=== PATIENT | female | born 1935 | race Caucasian/White ===

== ENCOUNTER 2017-06-29 09:40 | Observation (INO) | payer MEDICARE ==
[~2017-06-29] VITALS: Ht 152.4 cm; Wt 34.5 kg
[2017-06-29 12:59] LABS: BASOPHILS # (AUTO) 0.09 x10^3/uL (0-0.1); BASOPHILS % (AUTO) 1 % (0-1); EOSINOPHILS # (AUTO) 0.01 x10^3/uL (0-0.4); EOSINOPHILS % (AUTO) 0 % (1-7); LYMPHOCYTES # (AUTO) 0.97 x10^3/uL (1-3.4); LYMPHOCYTES % (AUTO) 10 % (22-44); MD NO; MEAN CORPUSCULAR HEMOGLOBIN 30.3 pg (27.0-34.8); MEAN CORPUSCULAR HGB CONC 32.9 g/dL (32.4-35.8); MEAN CORPUSCULAR VOLUME 92.2 fL (80-100); MEAN PLATELET VOLUME 7.3 fL (7.4-10.4); MONOCYTES % (AUTO) 4 % (2-9); NEUTROPHILS # (AUTO) 8.19 x10^3/uL (1.8-6.8); NEUTROPHILS % (AUTO) 85 % (42-75); PLATELET COUNT 205 x10^3/uL (130-400); RED BLOOD COUNT 4.25 x10^6/uL (3.82-5.3); RED CELL DISTRIBUTION WIDTH 14.6 % (9.6-15.2)
[2017-06-29 13:03] LABS: ALBUMIN 2.9 g/dL (3.4-5.0); ANION GAP 6 mmol/L (5-15); CALCIUM 8.4 mg/dL (8.5-10.1); CHLORIDE 100 mmol/L (98-107); CREATININE 0.48 mg/dL (0.55-1.02)
[2017-06-29] MEDS ORDERED: NS + 20MEQ KCL 1,000 ML IV SCH (14:20)
[2017-06-29] MEDS ORDERED: HYDROcodone/APAP 5/325 TABLET PO PRN (14:30)
[2017-06-29] MEDS ORDERED: morphine SULFATE 10 MG/ML, 1ML IVPush PRN (14:30)
[2017-06-29] MEDS ORDERED: POLYETHYLENE GLYCOL 17 GM PACKET PO PRN (14:30)
[2017-06-29] MEDS ORDERED: ACETAMINOPHEN 325 MG TABLET PO PRN (14:30)
[2017-06-29] MEDS ORDERED: ONDANSETRON 2MG/ML, 2ML IVPush PRN (14:30)
[2017-06-29] MEDS ORDERED: DOCUSATE 100 MG CAPSULE PO PRN (14:30)
[2017-06-29] MEDS ORDERED: METHOCARBAMOL 500 MG TABLET PO PRN (15:00)
[2017-06-29 15:24] VITALS: BP 100/69
[2017-06-29] MEDS: ENOXAPARIN 40 MG/0.4 ML SQ SCH ×2 (17:56→18:01)
[2017-06-29] MEDS: NICOTINE 7 MG/24 HR PATCH.TD24 TD SCH (17:56)
[2017-06-29 19:26] VITALS: BP 107/68
[2017-06-30 01:59] VITALS: BP 112/72
[2017-06-30 03:16] LABS: CULTURE INDICATED? YES; MICROSCOPIC INDICATED
[2017-06-30 07:39] VITALS: BP 92/56
[2017-06-30] MEDS: SENNA/DOCUSATE TABLET PO SCH (09:00)
[2017-06-30] MEDS: ENOXAPARIN 40 MG/0.4 ML SQ SCH (14:30)
[2017-06-30] MEDS: NICOTINE 7 MG/24 HR PATCH.TD24 TD SCH (14:30)
[2017-06-30 19:05] VITALS: BP 102/64
[2017-07-01 00:11] VITALS: BP 101/61
[2017-07-01 06:59] VITALS: BP 93/54
[2017-07-01] MEDS: SENNA/DOCUSATE TABLET PO SCH (07:56)
[2017-07-01] MEDS ORDERED: SODIUM CHLORIDE NASAL SPRAY 45ML BOTTLE NAS PRN (10:00)
[2017-07-01] MEDS: NICOTINE 7 MG/24 HR PATCH.TD24 TD SCH (14:30)
[2017-07-01] MEDS: ENOXAPARIN 40 MG/0.4 ML SQ SCH (14:30)
[2017-07-01 14:47] VITALS: BP 98/64
[2017-07-01 19:12] VITALS: BP 90/55
[2017-07-02] VITALS (7 sets, daily range): BP systolic 79–94; BP diastolic 42–58
[2017-07-02] MEDS: SENNA/DOCUSATE TABLET PO SCH (07:27)
[2017-07-02] MEDS ORDERED: ACET325T14 PO (12:56)
== END 2017-07-02 14:40 | disposition home or self-care (01) ==
LOC: ED 12:53 → INTOOBSV 14:14 → EDIP 14:14 → SUATTDRO 14:19 → 3NE 15:00
PROVIDERS: ADMIT Hospitalist; ATTEND Family Medicine
DX: M79.651 Pain in right thigh (principal); F17.200 Nicotine dependence, unspecified, uncomplicated; E43 Unspecified severe protein-calorie malnutrition; E87.1 Hypo-osmolality and hyponatremia; J44.9 Chronic obstructive pulmonary disease, unspecified; H91.10 Presbycusis, unspecified ear; M54.9 Dorsalgia, unspecified; W18.39XA Other fall on same level, initial encounter; Y93.89 Activity, other specified; Y92.89 Other specified places as the place of occurrence of the external cause; Y99.8 Other external cause status; Z98.890 Other specified postprocedural states
CPT/HCPCS: 36415; 71045; 72170; 72192; 73552; 80048; 81001; 82040; 85025; 87086; 96360; 96361; 97162; 97164; 97166; 97530; 97535; 99285; G0378; G8978; G8979; G8980; J3480; J1650